=== PATIENT | male | born 1930 | race Caucasian/White ===

== ENCOUNTER 2020-09-21 11:42 | Emergency (ER) | payer OTHER ==
--- OUTSIDE RECORDS SUMMARY | 2020-09-21 11:44 | XMS REPORT | Clinical Summary ---
:1930 Author Organization [facility] Address [address] [place] [address] Care Team Providers Name Role Phone Unavailable Primary Care Provider Unavailable Allergies Active Allergy Reactions Severity Noted Date Comments Penicillins Swelling, Rash Low 11/14/2016 Medications Medication Sig Dispensed Refills Start Date End Date Status tamsulosin (FLOMAX) 0.4 0 08/30/2016 Active mg Cp24 24 hr capsule acetaminophen (TYLENOL) Take 500 mg by 0 Active 500 MG mouth every 6 tabletIndications: (six) hours as arthritic pain needed for Pain. 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 BPH (benign prostatic hyperplasia) 11/14/2016 Family History Medical History Relation Name Comments Alcohol abuse Brother Arthritis Brother COPD Brother Cancer Brother Mental illness Brother Cancer Father Vision loss Mother Mental illness Paternal Grandmother defects Sister Early Sister COPD Son Drug abuse Son Early Son Hyperlipidemia Son Hypertension Son Relation Name Status Comments Brother Father Mother Paternal Grandmother Sister Son Social History Tobacco Use Types Packs/Day Years Used Date Former Smoker Cigarettes 3 49 Quit: 05/27/20 16 Alcohol Use Drinks/Week oz/Week Comments Yes 12 Cans of beer 12.0 Social Sex Assigned at Date Recorded Not on file Last Filed Vital Signs Not on file Plan of Treatment Not on file Results Not on fileafter 09/21/2019 Insurance Payer Benefit Plan / Subscriber ID Effective Dates Phone Addre ss Type Group MEDICARE MEDICARE A B [id number] 1997-Prese Medicare nt [employer] - [employer] INDEMNITY [id number] 2016-[employer]CIAL t Advance Directives For more information, please contact: [phone] Code Status Date Activated Date Inactivated Comments Full Code 11/14/2016 7:12 PM 11/19/2016 7:02 PM This code status was determined by: Patient
--- OUTSIDE RECORDS SUMMARY | 2020-09-21 11:45 | XMS REPORT | Continuity of Care Document ---
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) Medications Medication Details Route Status Patient Ordering Order Source Instructions Provider Date gabapentin 100 MG 100 mg = Active 10/02/ Misch er Oral Capsule 1 cap, 2019 Neuro PO, Bedtime, # 90 cap, 3 Refill(s) , Pharmacy: [id number] gabapentin 100 MG 100 mg = Inactive Misc her Oral Capsule 1 cap, 2019 Neuro PO, Bedtime, X 90 day, # 90 cap, 3 Refill(s) , Pharmacy: [id number] gabapentin 100 MG 100 mg = Inactive Misc her Oral Capsule 1 cap, 2019 Neuro PO, Bedtime, X 90 day, # 90 cap, 3 Refill(s) , Pharmacy: [id number] gabapentin 100 MG 100 mg = No Longer 09/21/ Mis maicol Oral Capsule 1 cap, Active 2019 Neuro PO, Bedtime, X 90 day, # 90 cap, 3 Refill(s) , Pharmacy: [id number] gabapentin 100 MG 100 mg = Active 07/26/ Misch er Oral Capsule 1 cap, 2018 Neuro PO, Bedtime, # 30 cap, 2 Refill(s) , Pharmacy: [id number] omeprazole 20 mg oral 20 mg = 1 Active cher enteric coated tablet tab, PO, 2019 N euro Daily, 0 Refill(s) Hydrochlorothiazide 25 mg = 1 Active guy 25 MG Oral Tablet tab, PO, 2019 Neuro Daily, # 30 tab, 0 Refill(s) [facility], [facility] Refill(s) Allergies, Adverse Reactions, Alerts Substance Category Reaction Severity Reaction Status Date Comments S ource type Reported penicillin Assertion Drug Active M ischer allergy 9 Neuro Immunizations No Data Provided for This Section Results No Data Provided for This Section Pathology Reports No Data Provided for This Section Diagnostic Reports No Data Provided for This Section Consultation Notes No Data Provided for This Section Discharge Summaries No Data Provided for This Section History and Physicals No Data Provided for This Section Vital Signs Vital Sign Value Date Comments Source Systolic (mm Hg) 132 10/02/2019 [facility] [place] Diastolic (mm Hg) 76 10/02/2019 [facility] Ne uro Heart Rate 66 10/02/2019 [facility] Neuro Respitory Rate 16 10/02/2019 [facility] Neuro Height 165.1 cm 10/02/2019 [facility] Neuro Weight 71.818 10/02/2019 [facility] Neuro BMI Calculated 26.35 10/02/2019 [facility] Neuro Systolic (mm Hg) 140 07/26/2019 [facility] [place] Diastolic (mm Hg) 81 07/26/2019 [facility] Ne uro Heart Rate 86 07/26/2019 [facility] Neuro Respitory Rate 16 07/26/2019 [facility] Neuro Height 162.56 cm 07/26/2019 [facility] Neuro Weight 74.545 07/26/2019 [facility] Neuro BMI Calculated 28.21 07/26/2019 [facility] Neuro Systolic (mm Hg) 134 06/14/2019 [facility] [place] Diastolic (mm Hg) 73 06/14/2019 [facility] Ne uro Heart Rate 70 06/14/2019 [facility] Neuro Respitory Rate 16 06/14/2019 [facility] Neuro Height 162.56 cm 06/14/2019 [facility] Neuro Weight 75.909 06/14/2019 [facility] Neuro BMI Calculated 28.73 06/14/2019 [facility] Neuro Systolic (mm Hg) 142 05/10/2019 [facility] [place] Diastolic (mm Hg) 75 05/10/2019 [facility] Ne uro Heart Rate 67 05/10/2019 [facility] Neuro Respitory Rate 16 05/10/2019 [facility] Neuro Height 165.1 cm 05/10/2019 [facility] Neuro Weight 74.545 05/10/2019 [facility] Neuro BMI Calculated 27.35 05/10/2019 [facility] Neuro BMI Calculated 27.87 04/03/2019 [facility] Neuro Height 162.56 cm 04/03/2019 [facility] Neuro Weight 73.636 04/03/2019 [facility] Neuro Systolic (mm Hg) 144 04/03/2019 [facility] [place] ro Diastolic (mm Hg) 78 04/03/2019 [facility] Ne uro Heart Rate 68 04/03/2019 [facility] Neuro Respitory Rate 16 04/03/2019 [facility] Neuro Encounters Location Location Encounter Encounter Reason Attending ADM NH Stat us Source Details Type Number For Provider Date Date Visit Outpatient [id number] Drew 04/03 Active [facility] [place] [facility] Outpatient [id number] Drew 04/03 04/04 [facility] Neurology [facility] [place] Outpatient [id number] Drew 05/10 Active [facility] [place] M[facility] Outpatient [id number] Drew 05/10 05/11 [facility] Neurology [facility] [place] Outpatient [id number] Drew 06/14 Active [facility] [place] [facility] Outpatient [id number] Drew 06/14 06/15 [facility] Neurology [facility] [place] Outpatient [id number] Drew 07/26 Active [facility] 2019 [place] [facility] Outpatient [id number] Drew 07/26 07/27 [facility] Neurology [facility] [place] Outpatient [id number] Drew 10/02 Active [facility] [place] /2020 [place] [facility] Outpatient [id number] Drew 10/02 10/03 [facility] Neurology Krell /2019 Neuro [place] Outpatient [id number] Drew 10/26 Active [facility] [place] /2020 [place] [facility] Ambulatory [id number] Drew 10/26 10/26 [facility] Neurology Pre-Reg Krell /2019 Neuro [place] Outpatient [id number] Drew 05/02 Active [facility] [place] /2020 [place] [facility] Ambulatory [id number] Lucien 05/02 05/02 [facility] Neurology Pre-Reg Nyasia /2019 [place] Procedures No Data Provided for This Section Assessment and Plan No Data Provided for This Section Plan of Care No Data Provided for This Section Social History Social History Date Source Social History TypeResponse 10/02/2019 [facility] Smoking Status Former smoker; Type: Cigarettes; Exposur e to Tobacco Smoke None; Cigarette Smoking Last 365 Days No; Reg Smoking Cessation Counseling No; Other Tobacco Frequency Quit 50yrs ago; entered on: 10/02/19 Family History No Data Provided for This Section Advance Directives No Data Provided for This Section Functional Status No Data Provided for This Section
--- OUTSIDE RECORDS SUMMARY | 2020-09-21 11:46 | XMS REPORT | Continuity of Care Document ---
:1930 Author Organization [facility] t Address [address] [place] [address] Care Team Providers Name Role Phone Mikel Low Attending Clinician Freeman Cortes MD Attending Clinician CECIL CHRISTIE Attending Clinician Unavailable Brenda BURR Admitting Clinician Unavailable Problems Condition Condition Condition Status Onset Resolution Last Treating Co mments Source Name Details Category Date Date Treatment Clinician Date Gastric Gastric Disease [facility] Large Large Disease Active [facility] bowel bowel [facility] - obstructio obstructio 00:00: Me dical n n 00 Center Hypomagnes Hypomagnes Disease Active [facility] emia [facility] Sigmoid Sigmoid Disease Active [facility] vol[facility]vulus [facility] BPH BPH Disease Active [facility]benign (benign [facility] - prostatic prostatic 00:00: Medi helen hyperplasi hyperplasi 00 Ce nter a) a) Fall Problem Active 2020-05-04 Memor ia (finding) 21:17:45 l Fall Nba (finding) Active Problem 05/04/2020 [facility] Hypertensi Problem Active 2020-05-04 M emoria ve 21:17:45 l disorder, [place] systemic Hypertensi arterial ve (disorder) disorder, systemic arterial (disorder) [facility] Lumbar Problem Active 2020-05-04 Mem[facility] ia spondylosi 21:17:45 l s Lumbar [place] (disorder) spondylosi s (disorder) Active Problem 05/04/2020 [facility] Paresthesi Problem Active 2020-05-04 M emoria a 21:17:45 l (finding) Nba Paresthesi a (finding) Active Problem 05[facility]04/2020 [facility] Peripheral Problem Active 2020-05-04 M emoria nerve 21:17:45 l disease Nba (disorder) Peripheral nerve disease (disorder) Active Problem 05/04/2020 [facility] Allergies, Adverse Reactions, Alerts Allergy Allergy Status Severity Reaction(s) Onset Inactive Treating Comm ents Source Name Type Date Date Clinician penicill penicill Active Memori a in in 7-09 l 00:00: Nba 00 Penicill Propensi Active Swelling, [facility] ins ty to [facility] - adverse [facility]: Medical reaction 00 Center s Family History Family Member Diagnosis Comments Start Date Stop Date Source Natural brother Alcohol abuse [facility] Natural brother Arthritis [facility] Natural brother COPD [facility] Natural brother Cancer [facility] Natural brother Mental illness [facility] Natural father Cancer [facility] Natural mother Vision loss [facility] Paternal grandmother Mental illness [facility] Natural sister defects [facility] Natural sister Early [facility] Natural son COPD [facility] Natural son Drug abuse [facility] Natural son Early [facility] Natural son Hyperlipidemia [facility] Natural son Hypertension [facility] Social History Social Habit Start Date Stop Date Quantity Comments Source Sex Assigned At [facility] Cigarettes smoked 2016-11-18 2016-11-18 [facility] - current (pack per 00:00:00 00:00:00 Medical Center day) - Reported Cigarette 2016-11-18 2016-11-18 [facility] - pack-years 00:00:00 00:00:00 Medical Center Alcohol intake 2016-11-18 2016-11-18 Current drinker JADA Knapp - 00:00:00 00:00:00 of alcohol Medical Center (finding) Alcohol Comment 2016-11-14 2016-11-[address] [facility] - 00:00:00 00:00:00 Medical Center History of tobacco 2016-05-27 Current smoker [facility] - use 00:00:00 Medical Center Smoking Status Start Date Stop Date Source Social History 2019-10-02 16:10:58 2019-10-02 16:10:58 [facility] Medications Ordered Filled Start Stop Current Ordering Indication Dosage Frequency Signature Comments Components Source Medication Medication Date Date Medication? Clinician (SIG) Name Name gabapentin Yes 100 mg = 1 M emoria 100 MG Oral 1-07 cap, PO, l Capsule 16:44: Bedtime, # Herm jamison 38 90 cap, 3 Refill(s), Pharmacy: [id number] gabapentin No 100 mg = 1 M emoria 100 MG Oral 1-07 cap, PO, l Capsule 16:43: Bedtime, X Herm jamison 48 90 day, # 90 cap, 3 Refill(s), Pharmacy: [id number] gabapentin No 100 mg = 1 M emoria 100 MG Oral 1-07 cap, PO, l Capsule 16:42: Bedtime, X Herm jamison 29 90 day, # 90 cap, 3 Refill(s), Pharmacy: [id number] gabapentin 2018-09 No 100 mg = 1 M emoria 100 MG Oral 2-27 cap, PO, l Capsule 21:27: Bedtime, X Herm jamison 20 90 day, # 90 cap, 3 Refill(s), Pharmacy: [id number] gabapentin 2018-09 Yes 100 mg = 1 M emoria 100 MG Oral 0-31 cap, PO, l Capsule 16:51: Bedtime, # Herm jamison 00 30 cap, 2 Refill(s), Pharmacy: [id number] omeprazole 2018- Yes 20 mg = 1 Me moria 20 mg oral 7-09 tab, PO, l enteric 22:17: Daily, 0 Drew n coated 00 Refill(s) tablet Hydrochloro Yes 25 mg = 1 M emoria thiazide 25 7-09 tab, PO, l MG Oral 22:17: Daily, # Drew n Tablet 00 30 tab, 0 Refill(s) tamsulosin Yes 0.4 mg, [facility] - PO, Daily, l 22:17: 0 [place] 00 Refill(s) acetaminoph Yes arthritic 500mg Take [address] [facility] en 2-24 pain mg by [facility] - (TYLENOL) 17:02: mouth Medical 500 MG 04 every 6 Center tablet (six) hours as needed for Pain. tamsulosin 2015-[address] (FLOMAX) 2-05 [facility] - 0.4 mg Cp24 00:00: Medica l 24 hr 00 Center capsule Vital Signs Vital Name Observation Time Observation Value Comments Source Systolic (mm Hg) 2019-10-02 16:10:00 Luc rial Nba Diastolic (mm Hg) 2019-10-02 16:10:00 [facility] orial [place] Heart Rate 2019-10-02 16:10:00 [facility] [place] Respitory Rate 2019-10-02 16:10:00 Memori al Nba Height 2019-10-02 16:10:00 165.1 cm [facility] Nba Weight 2019-10-02 16:10:00 [facility] BMI Calculated 2019-10-02 16:10:00 Memori al [place] Systolic (mm Hg) 2019-07-26 16:06:00 Luc rial [place] Diastolic (mm Hg) 2019-07-26 16:06:00 [facility] orial [place] Heart Rate 2019-07-26 16:06:00 [facility] [place] Respitory Rate 2019-07-26 16:06:00 Memori al [place] Height 2019-07-26 16:06:00 162.56 cm [facility] [place] Weight 2019-07-26 16:06:00 [facility] Nba BMI Calculated 2019-07-26 16:06:00 [facility] [place] Systolic (mm Hg) 2019-06-14 16:20:00 Luc rial [place] Diastolic (mm Hg) 2019-06-14 16:20:00 Mem orial [place] Heart Rate 2019-06-14 16:20:00 [facility] [place] Respitory Rate 2019-06-14 16:20:00 [facility] [place] Height 2019-06-14 16:20:00 162.56 cm [facility] Weight 2019-06-14 16:20:00 [facility] [place] BMI Calculated 2019-06-14 16:20:00 [facility] [place] Systolic (mm Hg) 2019-05-10 19:57:00 Luc rial Nba Diastolic (mm Hg) 2019-05-10 19:57:00 Mem orial [place] Heart Rate 2019-05-10 19:57:00 [facility] Respitory Rate 2019-05-10 19:57:00 [facility] [place] Height 2019-05-10 19:57:00 165.1 cm [facility] Weight 2019-05-10 19:57:00 [facility] BMI Calculated 2019-05-10 19:57:00 Mem[facility] al N[facility] BMI Calculated 2019-04-03 20:05:00 Mem[facility] al [place] Height 2019-04-03 20:05:00 162.56 cm [facility] [place] Weight 2019-04-03 20:05:00 [facility] [place] Systolic (mm Hg) 2019-04-03 20:05:00 Luc rial [place] Diastolic (mm Hg) 2019-04-03 20:05:00 Mem orial [place] Heart Rate 2019-04-03 20:05:00 [facility] Respitory Rate 2019-04-03 20:05:00 [facility] [place] Procedures This patient has no known procedures. Encounters Start End Encounter Admission Attending Care Care Encounter Source Date/Time Date/Time Type Type Clinicians Facility Department ID 2020-05-02 2020-05-02 Outpatient VIRGINIE Low [id number] 09:00:00 09:00:00 Drew 06 Mikel 2019-10-26 2019-10-26 Outpatient HERVE LowSCHCAMILLE EDGARSCHER [id number] 09:15:00 09:15:00 Drew 04 Mikel 2019-10-02 2019-10-02 Outpatient VIRGINIE LowSCHCAMILLE [id number] 10:00:00 23:59:59 Drew 05 Mikel 2019-07-26 2019-07-26 Outpatient HERVE LowSCHCAMILLE EDGARSCHER [id number] 11:00:00 23:59:59 Drew 03 Mikel 2019-06-14 2019-06-14 Outpatient VIRGINIE LowSCHER [id number] 11:15:00 23:59:59 Drew Mikel 2019-06-12 2019-06-12 Office Sophia [facility] [id number] 10:24:54 11:11:55 Visit Keny Loja [id number] Freeman [id number] 2019-05-10 2019-05-10 Outpatient Maranda [facility] [id number] 14:30:00 23:59:59 Drew Mikel 2019-04-03 2019-04-03 Outpatient FARIDA [facility]DR[facility] [id number] 14:30:00 23:59:59 Drew 00 Mikel Results Test Description Test Time Test Comments Results Result Comments Source CBC W/PLT COUNT & AUTO DIFFERENTIAL 2016-11-19 06:25:00 Test Item Value Reference Range Interpretation Comme nts WHITE BLOOD CELL COUNT (BEAKER) (test code = 775) 10.8 K/ L 4.0- 10.0 H RED BLOOD CELL COUNT (BEAKER) (test code = 761) 3.76 M/ L 4.20-5 .80 L HEMOGLOBIN (BEAKER) (test code = 410) 13.2 GM/DL 13.0-16.8 HEMATOCRIT (BEAKER) (test code = 411) 38.8 % 40.0-50.0 L MEAN CORPUSCULAR VOLUME (BEAKER) (test code = 753) 103.0 fL 82. 0-98.0 H MEAN CORPUSCULAR HEMOGLOBIN (BEAKER) (test code = 751) 35.0 pg 27.0-33.0 H MEAN CORPUSCULAR HEMOGLOBIN CONC (BEAKER) (test code = 752) 34.0 GM/DL 32.0-36.0 RED CELL DISTRIBUTION WIDTH (BEAKER) (test code = 412) 12.8 % 10.3-14.2 PLATELET COUNT (BEAKER) (test code = 756) 322 K/CU MM 150-430 MEAN PLATELET VOLUME (BEAKER) (test code = 754) 7.6 fL 6.5-10 .5 NUCLEATED RED BLOOD CELLS (BEAKER) (test code = 413) 0 /100 WBC 0 -0 NEUTROPHILS RELATIVE PERCENT (BEAKER) (test code = 429) 77 % LYMPHOCYTES RELATIVE PERCENT (BEAKER) (test code = 430) 11 % MONOCYTES RELATIVE PERCENT (BEAKER) (test code = 431) 10 % EOSINOPHILS RELATIVE PERCENT (BEAKER) (test code = 432) 2 % BASOPHILS RELATIVE PERCENT (BEAKER) (test code = 437) 0 % NEUTROPHILS ABSOLUTE COUNT (BEAKER) (test code = 670) 8.36 K/ L 1.80-8.00 H LYMPHOCYTES ABSOLUTE COUNT (BEAKER) (test code = 414) 1.21 K/ L 1.48-4.50 L MONOCYTES ABSOLUTE COUNT (BEAKER) (test code = 415) 1.04 K/ L 0. 00-1.30 EOSINOPHILS ABSOLUTE COUNT (BEAKER) (test code = 416) 0.19 K/ L 0.00-0.50 BASOPHILS ABSOLUTE COUNT (BEAKER) (test code = 417) 0.02 K/ L 0. 00-0.20 [id number] 06:00:00 Test Item Value Reference Range Interpretation Comments PHOSPHORUS (BEAKER) (test code = 3.0 mg/dL 2.3-4.7 604) [id number] 06:00:00 Test Item Value Reference Range Interpretation Comments MAGNESIUM (BEAKER) (test code = 1.9 mg/dL 1.6-2.6 627) BASIC METABOLIC [id number] 06:00:00 Test Item Value Reference Range Interpretation Comments SODIUM (BEAKER) 134 meq/L 136-145 L (test code = 381) POTASSIUM (BEAKER) 4.6 meq/L 3.5-5.1 (test code = 379) CHLORIDE (BEAKER) 102 meq/L 98-107 (test code = 382) CO2 (BEAKER) (test 25 meq/L 22-29 code = 355) BLOOD UREA NITROGEN 7 mg/dL 7-21 (BEAKER) (test code = 354) CREATININE (BEAKER) 0.71 mg/dL 0.57-1.25 (test code = 358) GLUCOSE RANDOM 104 mg/dL 70-105 (BEAKER) (test code = 652) CALCIUM (BEAKER) 8.8 mg/dL 8.4-10.2 (test code = 697) EGFR (BEAKER) (test 106 mL/min/1.73 ESTIM ATED GFR IS code = 1092) sq m NOT ACCURATE CREATININE CLEARANCE IN PREDICTING GLOMERULAR FILTRATION RATE . ESTIMATED GFR I S NOT APPLICABLE FOR DIALYSIS PATIEN TS. [id number] 05:40:00 Test Item Value Reference Range Interpretation Comments PROTIME (BEAKER) (test code = 13.4 seconds 11.7-14.7 759) INR (BEAKER) (test code = 370) 1.0 <=5.9 PARTIAL THROMBOPLASTIN TIME 33.3 seconds 22.5-36.0 (BEAKER) (test code = 760) RECOMMENDED COUMADIN/WARFARIN INR THERAPY RANGESSTANDARD DOSE: 2.0 - 3.0 Includes: PROPHYLAXIS forvenous thrombosis, systemic embolization; TREATMENT for venous thrombosis and/or pulmonary embolus.HIGH RISK: Target INR is 2.5-3.5 for patients with mechanical heart valves.[id number] 06:19:00 Test Item Value Reference Range Interpretation Comments PHOSPHORUS (BEAKER) (test code = 3.2 mg/dL 2.3-4.7 604) [id number] 06:19:00 Test Item Value Reference Range Interpretation Comments MAGNESIUM (BEAKER) (test code = 1.8 mg/dL 1.6-2.6 627) BASIC METABOLIC [id number] 06:19:00 Test Item Value Reference Range Interpretation Comments SODIUM (BEAKER) 137 meq/L 136-145 (test code = 381) POTASSIUM (BEAKER) 4.2 meq/L 3.5-5.1 (test code = 379) CHLORIDE (BEAKER) 107 meq/L 98-107 (test code = 382) CO2 (BEAKER) (test 23 meq/L 22-29 code = 355) BLOOD UREA NITROGEN 7 mg/dL 7-21 (BEAKER) (test code = 354) CREATININE (BEAKER) 0.71 mg/dL 0.57-1.25 (test code = 358) GLUCOSE RANDOM 137 mg/dL 70-105 H (BEAKER) (test code = 652) CALCIUM (BEAKER) 8.2 mg/dL 8.4-10.2 L (test code = 697) EGFR (BEAKER) (test 106 mL/min/1.73 ESTIM ATED GFR IS code = 1092) sq m NOT ACCURATE CREATININE CLEARANCE IN PREDICTING GLOMERULAR FILTRATION RATE . ESTIMATED GFR I S NOT APPLICABLE FOR DIALYSIS PATIEN TS. CBC W/PLT COUNT & AUTO [id number] 06:02:00 Test Item Value Reference Range Interpretation Comments WHITE BLOOD CELL COUNT (BEAKER) 13.3 K/ L 4.0-10.0 H (test code = 775) RED BLOOD CELL COUNT (BEAKER) 3.78 M/ L 4.20-5.80 L (test code = 761) HEMOGLOBIN (BEAKER) (test code = 13.1 GM/DL 13.0-16.8 410) HEMATOCRIT (BEAKER) (test code = 39.4 % 40.0-50.0 L 411) MEAN CORPUSCULAR VOLUME (BEAKER) 104.0 fL 82.0-98.0 H (test code = 753) MEAN CORPUSCULAR HEMOGLOBIN 34.8 pg 27.0-33.0 H (BEAKER) (test code = 751) MEAN CORPUSCULAR HEMOGLOBIN CONC 33.4 GM/DL 32.0-36.0 (BEAKER) (test code = 752) RED CELL DISTRIBUTION WIDTH 12.8 % 10.3-14.2 (BEAKER) (test code = 412) PLATELET COUNT (BEAKER) (test 322 K/CU MM 150-430 code = 756) MEAN PLATELET VOLUME (BEAKER) 7.4 fL 6.5-10.5 (test code = 754) NUCLEATED RED BLOOD CELLS 0 /100 WBC 0-0 (BEAKER) (test code = 413) NEUTROPHILS RELATIVE PERCENT 83 % (BEAKER) (test code = 429) LYMPHOCYTES RELATIVE PERCENT 7 % (BEAKER) (test code = 430) MONOCYTES RELATIVE PERCENT 9 % (BEAKER) (test code = 431) EOSINOPHILS RELATIVE PERCENT 0 % (BEAKER) (test code = 432) BASOPHILS RELATIVE PERCENT 0 % (BEAKER) (test code = 437) NEUTROPHILS ABSOLUTE COUNT 11.10 K/ L 1.80-8.00 H (BEAKER) (test code = 670) LYMPHOCYTES ABSOLUTE COUNT 0.97 K/ L 1.48-4.50 L (BEAKER) (test code = 414) MONOCYTES ABSOLUTE COUNT (BEAKER) 1.14 K/ L 0.00-1.30 (test code = 415) EOSINOPHILS ABSOLUTE COUNT 0.04 K/ L 0.00-0.50 (BEAKER) (test code = 416) BASOPHILS ABSOLUTE COUNT (BEAKER) 0.06 K/ L 0.00-0.20 (test code = 417) [id number] 05:52:00 Test Item Value Reference Range Interpretation Comments PROTIME (BEAKER) (test code = 13.5 seconds 11.7-14.7 759) INR (BEAKER) (test code = 370) 1.0 <=5.9 PARTIAL THROMBOPLASTIN TIME 31.9 seconds 22.5-36.0 (BEAKER) (test code = 760) RECOMMENDED COUMADIN/WARFARIN INR THERAPY RANGESSTANDARD DOSE: 2.0 - 3.0 Includes: PROPHYLAXIS forvenous thrombosis, systemic embolization; TREATMENT for venous thrombosis and/or pulmonary embolus.HIGH RISK: Target INR is 2.5-3.5 for patients with mechanical heart valves.CBC W/PLT COUNT & AUTO DIFFERENTIAL 2016-11-17 05:42:00 Test Item Value Reference Range Interpretation Comments WHITE BLOOD CELL COUNT (BEAKER) 6.7 K/ L 4.0-10.0 (test code = 775) RED BLOOD CELL COUNT (BEAKER) 3.60 M/ L 4.20-5.80 L (test code = 761) HEMOGLOBIN (BEAKER) (test code = 12.9 GM/DL 13.0-16.8 L 410) HEMATOCRIT (BEAKER) (test code = 37.1 % 40.0-50.0 L 411) MEAN CORPUSCULAR VOLUME (BEAKER) 103.0 fL 82.0-98.0 H (test code = 753) MEAN CORPUSCULAR HEMOGLOBIN 35.8 pg 27.0-33.0 H (BEAKER) (test code = 751) MEAN CORPUSCULAR HEMOGLOBIN CONC 34.6 GM/DL 32.0-36.0 (BEAKER) (test code = 752) RED CELL DISTRIBUTION WIDTH 12.7 % 10.3-14.2 (BEAKER) (test code = 412) PLATELET COUNT (BEAKER) (test 297 K/CU MM 150-430 code = 756) MEAN PLATELET VOLUME (BEAKER) 7.3 fL 6.5-10.5 (test code = 754) NUCLEATED RED BLOOD CELLS 0 /100 WBC 0-0 (BEAKER) (test code = 413) NEUTROPHILS RELATIVE PERCENT 64 % (BEAKER) (test code = 429) LYMPHOCYTES RELATIVE PERCENT 22 % (BEAKER) (test code = 430) MONOCYTES RELATIVE PERCENT 9 % (BEAKER) (test code = 431) EOSINOPHILS RELATIVE PERCENT 4 % (BEAKER) (test code = 432) BASOPHILS RELATIVE PERCENT 1 % (BEAKER) (test code = 437) NEUTROPHILS ABSOLUTE COUNT 4.27 K/ L 1.80-8.00 (BEAKER) (test code = 670) LYMPHOCYTES ABSOLUTE COUNT 1.48 K/ L 1.48-4.50 (BEAKER) (test code = 414) MONOCYTES ABSOLUTE COUNT (BEAKER) 0.63 K/ L 0.00-1.30 (test code = 415) EOSINOPHILS ABSOLUTE COUNT 0.26 K/ L 0.00-0.50 (BEAKER) (test code = 416) BASOPHILS ABSOLUTE COUNT (BEAKER) 0.06 K/ L 0.00-0.20 (test code = 417) [id number] 04:59:00 Test Item Value Reference Range Interpretation Comments PHOSPHORUS (BEAKER) (test code = 3.0 mg/dL 2.3-4.7 604) [id number] 04:59:00 Test Item Value Reference Range Interpretation Comments MAGNESIUM (BEAKER) (test code = 2.2 mg/dL 1.6-2.6 627) BASIC METABOLIC [id number] 04:59:00 Test Item Value Reference Range Interpretation Comments SODIUM (BEAKER) 142 meq/L 136-145 (test code = 381) POTASSIUM (BEAKER) 3.9 meq/L 3.5-5.1 (test code = 379) CHLORIDE (BEAKER) 109 meq/L 98-107 H (test code = 382) CO2 (BEAKER) (test 27 meq/L 22-29 code = 355) BLOOD UREA NITROGEN 9 mg/dL 7-21 (BEAKER) (test code = 354) CREATININE (BEAKER) 0.65 mg/dL 0.57-1.25 (test code = 358) GLUCOSE RANDOM 110 mg/dL 70-105 H (BEAKER) (test code = 652) CALCIUM (BEAKER) 8.3 mg/dL 8.4-10.2 L (test code = 697) EGFR (BEAKER) (test 117 mL/min/1.73 ESTIM ATED GFR IS code = 1092) sq m NOT ACCURATE CREATININE CLEARANCE IN PREDICTING GLOMERULAR FILTRATION RATE . ESTIMATED GFR I S NOT APPLICABLE FOR DIALYSIS PATIEN TS. [id number] 04:56:00 Test Item Value Reference Range Interpretation Comments PROTIME (BEAKER) (test code = 13.6 seconds 11.7-14.7 759) INR (BEAKER) (test code = 370) 1.1 <=5.9 PARTIAL THROMBOPLASTIN TIME 28.9 seconds 22.5-36.0 (BEAKER) (test code = 760) RECOMMENDED COUMADIN/WARFARIN INR THERAPY RANGESSTANDARD DOSE: 2.0 - 3.0 Includes: PROPHYLAXIS forvenous thrombosis, systemic embolization; TREATMENT for venous thrombosis and/or pulmonary embolus.HIGH RISK: Target INR is 2.5-3.5 for patients with mechanical heart valves.CBC W/PLT COUNT & AUTO DIFFERENTIAL 2016-11-16 06:23:00 Test Item Value Reference Range Interpretation Comments WHITE BLOOD CELL COUNT (BEAKER) 7.9 K/ L 4.0-10.0 (test code = 775) RED BLOOD CELL COUNT (BEAKER) 3.70 M/ L 4.20-5.80 L (test code = 761) HEMOGLOBIN (BEAKER) (test code = 12.9 GM/DL 13.0-16.8 L 410) HEMATOCRIT (BEAKER) (test code = 38.2 % 40.0-50.0 L 411) MEAN CORPUSCULAR VOLUME (BEAKER) 103.0 fL 82.0-98.0 H (test code = 753) MEAN CORPUSCULAR HEMOGLOBIN 34.8 pg 27.0-33.0 H (BEAKER) (test code = 751) MEAN CORPUSCULAR HEMOGLOBIN CONC 33.7 GM/DL 32.0-36.0 (BEAKER) (test code = 752) RED CELL DISTRIBUTION WIDTH 12.8 % 10.3-14.2 (BEAKER) (test code = 412) PLATELET COUNT (BEAKER) (test 296 K/CU MM 150-430 code = 756) MEAN PLATELET VOLUME (BEAKER) 7.4 fL 6.5-10.5 (test code = 754) NUCLEATED RED BLOOD CELLS 0 /100 WBC 0-0 (BEAKER) (test code = 413) NEUTROPHILS RELATIVE PERCENT 60 % (BEAKER) (test code = 429) LYMPHOCYTES RELATIVE PERCENT 25 % (BEAKER) (test code = 430) MONOCYTES RELATIVE PERCENT 11 % (BEAKER) (test code = 431) EOSINOPHILS RELATIVE PERCENT 4 % (BEAKER) (test code = 432) BASOPHILS RELATIVE PERCENT 1 % (BEAKER) (test code = 437) NEUTROPHILS ABSOLUTE COUNT 4.73 K/ L 1.80-8.00 (BEAKER) (test code = 670) LYMPHOCYTES ABSOLUTE COUNT 1.99 K/ L 1.48-4.50 (BEAKER) (test code = 414) MONOCYTES ABSOLUTE COUNT (BEAKER) 0.85 K/ L 0.00-1.30 (test code = 415) EOSINOPHILS ABSOLUTE COUNT 0.29 K/ L 0.00-0.50 (BEAKER) (test code = 416) BASOPHILS ABSOLUTE COUNT (BEAKER) 0.07 K/ L 0.00-0.20 (test code = 417) [id number] 05:59:00 Test Item Value Reference Range Interpretation Comments PHOSPHORUS (BEAKER) (test code = 3.3 mg/dL 2.3-4.7 604) [id number] 05:59:00 Test Item Value Reference Range Interpretation Comments MAGNESIUM (BEAKER) (test code = 1.9 mg/dL 1.6-2.6 627) BASIC METABOLIC [id number] 05:59:00 Test Item Value Reference Range Interpretation Comments SODIUM (BEAKER) 140 meq/L 136-145 (test code = 381) POTASSIUM (BEAKER) 3.4 meq/L 3.5-5.1 L (test code = 379) CHLORIDE (BEAKER) 109 meq/L 98-107 H (test code = 382) CO2 (BEAKER) (test 23 meq/L 22-29 code = 355) BLOOD UREA NITROGEN 14 mg/dL 7-21 (BEAKER) (test code = 354) CREATININE (BEAKER) 0.71 mg/dL 0.57-1.25 (test code = 358) GLUCOSE RANDOM 94 mg/dL 70-105 (BEAKER) (test code = 652) CALCIUM (BEAKER) 8.1 mg/dL 8.4-10.2 L (test code = 697) EGFR (BEAKER) (test 106 mL/min/1.73 ESTIM ATED GFR IS code = 1092) sq m NOT ACCURATE CREATININE CLEARANCE IN PREDICTING GLOMERULAR FILTRATION RATE . ESTIMATED GFR I S NOT APPLICABLE FOR DIALYSIS PATIEN TS. [id number] 05:58:00 Test Item Value Reference Range Interpretation Comments PROTIME (BEAKER) (test code = 13.6 seconds 11.7-14.7 759) INR (BEAKER) (test code = 370) 1.1 <=5.9 PARTIAL THROMBOPLASTIN TIME 30.6 seconds 22.5-36.0 (BEAKER) (test code = 760) RECOMMENDED COUMADIN/WARFARIN INR THERAPY RANGESSTANDARD DOSE: 2.0 - 3.0 Includes: PROPHYLAXIS forvenous thrombosis, systemic embolization; TREATMENT for venous thrombosis and/or pulmonary embolus.HIGH RISK: Target INR is 2.5-3.5 for patients with mechanical heart valves.[id number] 04:22:00 Test Item Value Reference Range Interpretation Comments MAGNESIUM (BEAKER) 1.8 mg/dL 1.6-2.6 Specimen slightly (test code = 627) hemolyzed [id number] 04:22:00 Test Item Value Reference Range Interpretation Comments PHOSPHORUS (BEAKER) 3.3 mg/dL 2.3-4.7 Specimen slightly (test code = 604) hemolyzed BASIC METABOLIC [id number] 04:22:00 Test Item Value Reference Range Interpretation Comments SODIUM (BEAKER) 140 meq/L 136-145 (test code = 381) POTASSIUM (BEAKER) 3.8 meq/L 3.5-5.1 Specimen slightly (test code = 379) hemolyzed CHLORIDE (BEAKER) 106 meq/L 98-107 (test code = 382) CO2 (BEAKER) (test 26 meq/L 22-29 code = 355) BLOOD UREA NITROGEN 12 mg/dL 7-21 (BEAKER) (test code = 354) CREATININE (BEAKER) 0.77 mg/dL 0.57-1.25 Specimen slightly (test code = 358) hemolyzed GLUCOSE RANDOM 94 mg/dL 70-105 (BEAKER) (test code = 652) CALCIUM (BEAKER) 8.8 mg/dL 8.4-10.2 (test code = 697) EGFR (BEAKER) (test 96 mL/min/1.73 ESTIMA DENIA GFR IS code = 1092) sq m NOT ACCURATE CREATININE CLEARANCE IN PREDICTING GLOMERULAR FILTRATION RATE . ESTIMATED GFR I S NOT APPLICABLE FOR DIALYSIS PATIEN TS. PT/[id number] 04:04:00 Test Item Value Reference Range Interpretation Comments PROTIME (BEAKER) (test code = 13.4 seconds 11.7-14.7 759) INR (BEAKER) (test code = 370) 1.0 <=5.9 PARTIAL THROMBOPLASTIN TIME 27.5 seconds 22.5-36.0 (BEAKER) (test code = 760) RECOMMENDED COUMADIN/WARFARIN INR THERAPY RANGESSTANDARD DOSE: 2.0 - 3.0 Includes: PROPHYLAXIS forvenous thrombosis, systemic embolization; TREATMENT for venous thrombosis and/or pulmonary embolus.HIGH RISK: Target INR is 2.5-3.5 for patients with mechanical heart valves.CBC W/PLT COUNT & AUTO DIFFERENTIAL 2016-11-15 04:04:00 Test Item Value Reference Range Interpretation Comments WHITE BLOOD CELL COUNT (BEAKER) 9.7 K/ L 4.0-10.0 (test code = 775) RED BLOOD CELL COUNT (BEAKER) 4.08 M/ L 4.20-5.80 L (test code = 761) HEMOGLOBIN (BEAKER) (test code = 14.1 GM/DL 13.0-16.8 410) HEMATOCRIT (BEAKER) (test code = 42.0 % 40.0-50.0 411) MEAN CORPUSCULAR VOLUME (BEAKER) 103.0 fL 82.0-98.0 H (test code = 753) MEAN CORPUSCULAR HEMOGLOBIN 34.5 pg 27.0-33.0 H (BEAKER) (test code = 751) MEAN CORPUSCULAR HEMOGLOBIN CONC 33.5 GM/DL 32.0-36.0 (BEAKER) (test code = 752) RED CELL DISTRIBUTION WIDTH 13.1 % 10.3-14.2 (BEAKER) (test code = 412) PLATELET COUNT (BEAKER) (test 326 K/CU MM 150-430 code = 756) MEAN PLATELET VOLUME (BEAKER) 7.1 fL 6.5-10.5 (test code = 754) NUCLEATED RED BLOOD CELLS 0 /100 WBC 0-0 (BEAKER) (test code = 413) NEUTROPHILS RELATIVE PERCENT 73 % (BEAKER) (test code = 429) LYMPHOCYTES RELATIVE PERCENT 17 % (BEAKER) (test code = 430) MONOCYTES RELATIVE PERCENT 9 % (BEAKER) (test code = 431) EOSINOPHILS RELATIVE PERCENT 1 % (BEAKER) (test code = 432) BASOPHILS RELATIVE PERCENT 0 % (BEAKER) (test code = 437) NEUTROPHILS ABSOLUTE COUNT 7.04 K/ L 1.80-8.00 (BEAKER) (test code = 670) LYMPHOCYTES ABSOLUTE COUNT 1.60 K/ L 1.48-4.50 (BEAKER) (test code = 414) MONOCYTES ABSOLUTE COUNT (BEAKER) 0.88 K/ L 0.00-1.30 (test code = 415) EOSINOPHILS ABSOLUTE COUNT 0.12 K/ L 0.00-0.50 (BEAKER) (test code = 416) BASOPHILS ABSOLUTE COUNT (BEAKER) 0.02 K/ L 0.00-0.20 (test code = 417) [id number] 19:57:00 Test Item Value Reference Range Interpretation Comments PHOSPHORUS (BEAKER) (test code = 3.1 mg/dL 2.3-4.7 604) [id number] 19:57:00 Test Item Value Reference Range Interpretation Comments MAGNESIUM (BEAKER) (test code = 1.8 mg/dL 1.6-2.6 627) BASIC METABOLIC [id number] 19:57:00 Test Item Value Reference Range Interpretation Comments SODIUM (BEAKER) 137 meq/L 136-145 (test code = 381) POTASSIUM (BEAKER) 3.7 meq/L 3.5-5.1 (test code = 379) CHLORIDE (BEAKER) 103 meq/L 98-107 (test code = 382) CO2 (BEAKER) (test 25 meq/L 22-29 code = 355) BLOOD UREA NITROGEN 14 mg/dL 7-21 (BEAKER) (test code = 354) CREATININE (BEAKER) 0.74 mg/dL 0.57-1.25 (test code = 358) GLUCOSE RANDOM 107 mg/dL 70-105 H (BEAKER) (test code = 652) CALCIUM (BEAKER) 9.1 mg/dL 8.4-10.2 (test code = 697) EGFR (BEAKER) (test 101 mL/min/1.73 ESTIM ATED GFR IS code = 1092) sq m NOT ACCURATE CREATININE CLEARANCE IN PREDICTING GLOMERULAR FILTRATION RATE . ESTIMATED GFR I S NOT APPLICABLE FOR DIALYSIS PATIEN TS. HEPATIC FUNCTION [id number] 19:57:00 Test Item Value Reference Range Interpretation Comments TOTAL PROTEIN (BEAKER) (test code = 6.5 gm/dL 6.0-8.3 770) ALBUMIN (BEAKER) (test code = 1145) 3.8 g/dL 3.5-5.0 BILIRUBIN TOTAL (BEAKER) (test code 0.5 mg/dL 0.2-1.2 = 377) BILIRUBIN DIRECT (BEAKER) (test 0.2 mg/dL 0.1-0.5 code = 706) ALKALINE PHOSPHATASE (BEAKER) (test 53 U/L 40-150 code = 346) AST (SGOT) (BEAKER) (test code = 22 U/L 5-34 353) ALT (SGPT) (BEAKER) (test code = 14 U/L 6-55 347) [id number] 19:51:00 Test Item Value Reference Range Interpretation Comments PROTIME (BEAKER) (test code = 13.1 seconds 11.7-14.7 759) INR (BEAKER) (test code = 370) 1.0 <=5.9 PARTIAL THROMBOPLASTIN TIME 28.0 seconds 22.5-36.0 (BEAKER) (test code = 760) RECOMMENDED COUMADIN/WARFARIN INR THERAPY RANGESSTANDARD DOSE: 2.0 - 3.0 Includes: PROPHYLAXIS forvenous thrombosis, systemic embolization; TREATMENT for venous thrombosis and/or pulmonary embolus.HIGH RISK: Target INR is 2.5-3.5 for patients with mechanical heart valves.CBC W/PLT COUNT & AUTO DIFFERENTIAL 2016-11-14 19:45:00 Test Item Value Reference Range Interpretation Comments WHITE BLOOD CELL COUNT (BEAKER) 13.3 K/ L 4.0-10.0 H (test code = 775) RED BLOOD CELL COUNT (BEAKER) 4.18 M/ L 4.20-5.80 L (test code = 761) HEMOGLOBIN (BEAKER) (test code = 14.5 GM/DL 13.0-16.8 410) HEMATOCRIT (BEAKER) (test code = 42.9 % 40.0-50.0 411) MEAN CORPUSCULAR VOLUME (BEAKER) 102.0 fL 82.0-98.0 H (test code = 753) MEAN CORPUSCULAR HEMOGLOBIN 34.7 pg 27.0-33.0 H (BEAKER) (test code = 751) MEAN CORPUSCULAR HEMOGLOBIN CONC 33.9 GM/DL 32.0-36.0 (BEAKER) (test code = 752) RED CELL DISTRIBUTION WIDTH 13.0 % 10.3-14.2 (BEAKER) (test code = 412) PLATELET COUNT (BEAKER) (test 355 K/CU MM 150-430 code = 756) MEAN PLATELET VOLUME (BEAKER) 6.9 fL 6.5-10.5 (test code = 754) NUCLEATED RED BLOOD CELLS 0 /100 WBC 0-0 (BEAKER) (test code = 413) NEUTROPHILS RELATIVE PERCENT 85 % (BEAKER) (test code = 429) LYMPHOCYTES RELATIVE PERCENT 9 % (BEAKER) (test code = 430) MONOCYTES RELATIVE PERCENT 6 % (BEAKER) (test code = 431) EOSINOPHILS RELATIVE PERCENT 1 % (BEAKER) (test code = 432) BASOPHILS RELATIVE PERCENT 0 % (BEAKER) (test code = 437) NEUTROPHILS ABSOLUTE COUNT 11.20 K/ L 1.80-8.00 H (BEAKER) (test code = 670) LYMPHOCYTES ABSOLUTE COUNT 1.13 K/ L 1.48-4.50 L (BEAKER) (test code = 414) MONOCYTES ABSOLUTE COUNT (BEAKER) 0.81 K/ L 0.00-1.30 (test code = 415) EOSINOPHILS ABSOLUTE COUNT 0.08 K/ L 0.00-0.50 (BEAKER) (test code = 416) BASOPHILS ABSOLUTE COUNT (BEAKER) 0.00 K/ L 0.00-0.20 (test code = 417) 0.00
--- NOTE | 2020-09-21 15:21 | ER ---
Nurse's Notes [facility] Name: Buster Branch Jr Age: 89 yrs Sex: Male : 1930 Arrival Date: 09/21/2020 Time: 11:43 Bed DIS5 Private MD: Lucien Murrell Diagnosis: Encounter for screening for other viral diseases Presentation: 09/21 13:06 Chief complaint: Patient states: Son and [id number] have Covid-19. Denies fever. ca1 Denies cough, congestion. No symptoms reported. Coronavirus screen: Client denies travel out of the [place] in the last 14 days. Client presents with at least one sign or symptom that may indicate coronavirus-19. Standard/surgical mask placed on the client. Provider contacted for isolation considerations. At this time, the client does not indicate any symptoms associated with coronavirus-19. Pt exposure to family member who are positive for Covid. Ebola Screen: Patient negative for fever greater than or equal to 101.5 degrees Fahrenheit, and additional compatible Ebola Virus Disease symptoms Patient denies exposure to infectious person. Patient denies travel to an Ebola-affected area in the 21 days before illness onset. No symptoms or risks identified at this time. Initial Sepsis Screen: Does the patient meet any 2 criteria? No. Patient's initial sepsis screen is negative. Does the patient have a suspected source of infection? No. Patient's initial sepsis screen is negative. Risk Assessment: Do you want to hurt yourself or someone else? Patient reports no desire to harm self or others. Onset of symptoms was September 21, 2020. 13:06 Method Of Arrival: Ambulatory ca1 13:06 Acuity: ASHIA 5 ca1 Triage Assessment: 15:15 General: Appears in no apparent distress. Behavior is calm. iw Historical: - Allergies: 13:10 PENICILLINS; ca1 - PMHx: 13:10 Prostate problem; ca1 - Immunization history:: Adult Immunizations up to date, Pneumococcal vaccine is up to date, Flu vaccine is not up to date. - Social history:: Smoking status: Patient denies any tobacco usage or history of. Screenin:02 Abuse screen:. Nutritional screening: No deficits noted. Tuberculosis screening: No iw symptoms or risk factors identified. Fall Risk Assessment: 15:00 General: Appears in no apparent distress. Behavior is calm, cooperative. Pain: Denies iw pain. Neuro: Level of Consciousness is awake, alert, obeys commands, Oriented to person, place, time, situation, Moves all extremities. Cardiovascular: Patient's skin is warm and dry. Respiratory: Respiratory effort is even, unlabored, Respiratory pattern is regular. Derm: Skin is intact, is healthy with good turgor. Musculoskeletal: Range of motion: intact in all extremities. Vital Signs: 13:06 BP 134 / 76; Pulse 77; Resp 16 S; Temp 99.2(TE); Pulse Ox 99% on R/A; Weight 74.39 kg ca1 (R); Height 5 ft. 5 in. (165.10 cm) (R); Pain 0/10; 15:17 BP 129 / 78; Pulse 78; Resp 18; Temp 97.5(O); Pulse Ox 98% on R/A; mh5 13:06 Body Mass Index 27.29 (74.39 kg, 165.10 cm) ca1 ED Course: 11:43 Patient arrived in ED. ag5 11:43 Lucien Murrell MD is Private Physician. ag5 13:09 Triage completed. ca1 13:10 Arm band placed on right wrist. ca1 15:04 Colleen Reed, EARLE is Primary Nurse. iw 15:05 José Miguel Timmons PA is PHCP. cp 15:05 Jadiel Javed MD is Attending Physician. cp 15:18 Patient has correct armband on for positive identification. Bed in low position. Call 5 light in reach. Pulse ox on. NIBP on. 15:47 COVID-19 Sent. [facility] 15:47 COVID swab sent to lab. [facility] 16:02 No provider procedures requiring assistance completed. Patient did not have IV access iw during this emergency room visit. Administered Medications: No medications were administered Outcome: 15:21 Discharge ordered by MD. cp 16:02 Discharged to home ambulatory. iw 16:02 Condition: good 16:02 Discharge instructions given to patient, Instructed on discharge instructions, follow up and referral plans. Demonstrated understanding of instructions, follow-up care. 16:03 Patient left the ED. iw Addendum: 09/24/2020 09:29 Addendum: COVID-19 Result: Positive result giiven to ED physician to notify pt. d m5 Physician: Himanshu Rittger MD Physician was able to contact pt and pt was notified of positive COVID-19 swab result. Physician answered pt questions. Signatures: Gina Shelby, EARLE RN dm5 Colleen Reed RN RN José Miguel Mcintosh PA PA cp Martinez, Maria 5 Constance Rcokwell RN RN ca1 Nabila Beckett 5
--- NOTE | 2020-09-21 15:21 | EDPHYS ---
Physician Documentation [facility] Name: Buster Branch Jr Age: 89 yrs Sex: Male : 1930 Arrival Date: 09/21/2020 Time: 11:43 Bed DIS5 Private MD: Lucien Murrell ED Physician Jadiel Javed HPI: 09/21 15:15 This 89 yrs old Male presents to ER via Ambulatory with complaints of R/O cp COVID. 15:15 Patient reports close contact with multiple family members who tested positive for cp COVID-19. Patient denies any current symptoms and requesting to be tested for COVID-19. Historical: - Allergies: 13:10 PENICILLINS; ca1 - PMHx: 13:10 Prostate problem; ca1 - Immunization history:: Adult Immunizations up to date, Pneumococcal vaccine is up to date, Flu vaccine is not up to date. - Social history:: Smoking status: Patient denies any tobacco usage or history of. ROS: 15:15 All other systems are negative. cp Exam: 15:17 Constitutional: The patient appears in no acute distress, alert, awake, cp non-diaphoretic, non-toxic, well developed, well nourished. 15:17 Head/Face: Normocephalic, atraumatic. cp 15:17 Chest/axilla: Inspection: normal. 15:17 Cardiovascular: Rate: normal. 15:17 Respiratory: the patient does not display signs of respiratory distress, Respirations: normal, no use of accessory muscles, no retractions, labored breathing, is not present, Breath sounds: are clear throughout. 15:17 Abdomen/GI: Exam negative for discomfort, distension, guarding, Inspection: abdomen appears normal. 15:17 Neuro: Orientation: to person, place \T\ time. Mentation: is normal. Vital Signs: 13:06 BP 134 / 76; Pulse 77; Resp 16 S; Temp 99.2(TE); Pulse Ox 99% on R/A; Weight 74.39 kg ca1 (R); Height 5 ft. 5 in. (165.10 cm) (R); Pain 0/10; 15:17 BP 129 / 78; Pulse 78; Resp 18; Temp 97.5(O); Pulse Ox 98% on R/A; mh5 13:06 Body Mass Index 27.29 (74.39 kg, 165.10 cm) ca1 MDM: 15:12 Patient medically screened. cp 15:20 Data reviewed: vital signs, nurses notes, and as a result, I will discharge patient. cp 15:20 Counseling: I had a detailed discussion with the patient and/or guardian regarding: the cp historical points, exam findings, and any diagnostic results supporting the discharge/admit diagnosis, to return to the emergency department if symptoms worsen or persist or if there are any questions or concerns that arise at home. ED course: VSS. COVID-19 test performed. Patient instructed to quarantine while awaiting results. 09/21 15:13 Order name: COVID-19 cp Administered Medications: No medications were administered Disposition: 15: Chart complete. cp 16:36 Co-signature as Attending Physician, Jadiel Javed MD. rn Disposition: 09/21/20 15:21 Discharged to Home. Impression: Encounter for screening for other viral diseases. - Condition is Stable. - Discharge Instructions: COVID-19. - Medication Reconciliation Form, Thank You Letter, Antibiotic Education, Prescription Opioid Use form. - Follow up: Private Physician; When: 2 - 3 days; Reason: Worsening of condition. - Problem is new. - Symptoms are unchanged. Signatures: Dispatcher [employer] EDColleen Andrews RN RN Jadiel Javed MD MD rn Page, Corey, PA PA cp Acob, Cheryl RN RN ca1 Corrections: (The following items were deleted from the chart) 16:03 15:21 09/21/2020 15:21 Discharged to Home. Impression: Encounter for screening for iw other viral diseases. Condition is Stable. Forms are Medication Reconciliation Form, Thank You Letter, Antibiotic Education, Prescription Opioid Use. Follow up: Private Physician; When: 2 - 3 days; Reason: Worsening of condition. Problem is new. Symptoms are unchanged. cp
[2020-09-21 16:09] VITALS: BP 129/78; TEMP 97.5; O2SAT 98
== END 2020-09-21 16:03 | disposition home or self-care (01) ==
LOC: ER 11:42
DX: U07.1 COVID-19 (principal); Z88.0 Allergy status to penicillin
CPT/HCPCS: 99283; U0002

== ENCOUNTER 2022-04-20 08:00 | Day surgery (SDC) | payer OTHER ==
--- NOTE | 2022-04-16 16:27 | RAD REPORT ---
EXAM DESCRIPTION: RAD - Chest Pa And Lat (2 Views) - 04/16/2022 4:20 pm CLINICAL HISTORY: Pre op pending bladder biospy Chest pain. COMPARISON: Abdomen 1 View (KUB) dated 11/14/2016 FINDINGS: Pleural base calcifications are present on the left. The lungs are mildly emphysematous. T he heart is mildly prominent. No displaced fractures. 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
[2022-04-16 16:40] LABS: Hematocrit 40.3 % (39.6-49.0); Lymphocytes % 22.5 % (15.3-44.8); MCV 99.6 fL (80-100); MPV 8.1 fL (7.6-11.3); RBC Red Blood Cell Count 4.05 M/uL (4.33-5.43)
[2022-04-16 16:41] LABS: Protime INR 1.01
[2022-04-16 16:56] LABS: Potassium 4.2 mmol/L (3.5-5.1)
[2022-04-16 17:11] LABS: SARS-CoV-2 Antigen Rapid Res Negative (Negative)
--- NOTE | 2022-04-19 09:32 | EKG ---
Test Date: 2022-04-16 Test Time: 16:01:55 Manager [employer]: [id number] MEASUREMENT RESULTS: Intervals: Rate: 63 IL: 166 QRSD: 78 QT: 402 QTc: 411 Spicer: P: 31 IL: 166 QRS: -30 T: 23 INTERPRETIVE STATEMENTS: Normal sinus rhythm Left axis deviation Minimal voltage criteria for LVH, may be normal variant Possible Anterolateral infarct, age undetermined Abnormal ECG Compared to ECG 02/16/1994 15:11:00 Left-axis deviation now present Left ventricular hypertrophy now present Myocardial infarct finding now present Sinus bradycardia no longer present Electronically Signed On 04-19-22 09:25:18 CDT by Bebo Alba
[~2022-04-20 08:00] MED LIST: CLINDAMYCIN 600MG/D5W 600 MG/50 ML BAG IV ONE
[2022-04-20] MEDS ORDERED: Ringers Lactate 1,000 ML IV ONE (08:13)
[2022-04-20] MEDS ORDERED: LIDOCAINE 1% MPF 5 ML VIAL ONE (08:37)
[2022-04-20] MEDS ORDERED: propofoL 200 MG/20 ML VIAL IV ONE (08:37)
[2022-04-20] MEDS ORDERED: FENTANYL CITR 100 MCG/2 ML ONE (08:37)
[2022-04-20] MEDS ORDERED: Gentamicin Inj 160 MG in NA CHLORIDE 0.9% 100 ML IV ONE (08:45)
[2022-04-20] MEDS ORDERED: ONDANSETRON 4 MG/2 ML VIAL ONE (10:09)
[2022-04-20] MEDS ORDERED: KETOROLAC 30 MG/ML INJ ONE (10:25)
[2022-04-20] MEDS ORDERED: PHENAZOPYRIDINE 100MG TAB PO ONE (10:46)
[2022-04-20 12:30] VITALS: TEMP 97
[2022-04-20] MEDS ORDERED: LIDOCAINE JELLY 2% 5 ML SYRINGE TOP ONE (13:36)
[2022-04-20 15:12] VITALS: BP 136/62; O2SAT 99
== END 2022-04-20 14:20 | disposition home or self-care (01) ==
LOC: OR 08:00
PROVIDERS: ATTEND Urology
PROC: 0TBB8ZX Excision of Bladder, Via Natural or Artificial Opening Endoscopic, Diagnostic (ICD-10-PCS; principal; 2022-04-20 09:30)
DX: D09.0 Carcinoma in situ of bladder (principal); Z20.822 Contact with and (suspected) exposure to COVID-19; R33.9 Retention of urine, unspecified; I10 Essential (primary) hypertension
CPT/HCPCS: 93005; 87088; 85025; 87086; 80048; 36415; 85610; 88305; 71046; 87811; 52204; J2704; J1580; J3010; J7120; J2405